=== PATIENT | male | born 1985 | race Caucasian/White ===

== ENCOUNTER 2022-06-10 14:41 | Emergency (ER) | payer MEDICAID, SELFPAY ==
--- NOTE | ~2022-06-10 | XR_ITS ---
EXAMINATION: XR SHOULDER, RIGHT CLINICAL INFORMATION: Right-sided shoulder pain. COMPARISON: None available. TECHNIQUE: 3 views. of the right shoulder. FINDINGS: No fracture. No dislocation. Glenohumeral joint and acromioclavicular joint are normal. No soft tissue calcification. There are popcorn like calcifications in the proximal humerus medullary cavity. This is likely due to enchondroma or old bone infarct. No expansion of the bone or bone erosions. No abnormal periosteal reaction. XR/XR shoulder RT min 2V IMPRESSION: 1. No acute abnormality of the shoulder. 2. Benign-appearing calcifications in the proximal humerus medullary cavity.
[2022-06-10 15:35] VITALS: BP 146/94; PULSE 76; RESP 18; TEMP 36.9; O2SAT 100; BMI 27.6
--- NOTE | 2022-06-10 15:40 | ED.EXTPRO ---
HPI - Extremity Problem General Chief complaint: Extremity Injury, Upper Stated complaint: r shoulder inj snowboarding Time Seen by Provider: 06/10/22 16:59 Source: patient Mode of arrival: ambulatory History of Present Illness HPI Narrative: 37 year old male with no significant past medical history presenting to the ED complaining of right shoulder pain with decreased strength x1 month s/p snowboarding accident. Reports fell onto right shoulder 1 month ago. Denies numbness, tingling, weakness, injury to the area, fever/chills MD Complaint: extremity pain Onset (ago): month(s) Related Data Allergies Allergy/AdvReac Type Severity Reaction Status Date / Time No Known Allergies Allergy Verified 06/10/22 15:38 Review of Systems Review of Systems: Constitutional: No Fever, No Chills ENT/Mouth: No Ear Pain, No Nasal Congestion, No Sinus Pain, No Hoarseness, No sore throat, No Rhinorrhea, No Swallowing Difficulty Cardiovascular: No Chest Pain, No SOB Respiratory: No Cough, No Sputum, No Wheezing Gastrointestinal: No Nausea, No Vomiting, No Diarrhea, No Constipation, No Abdominal pain Genitourinary: No Dysuria, No Urinary Frequency, No Hematuria, No Urinary Incontinence/retention, No Urgency, No Flank Pain Musculoskeletal: + joint pain, No Myalgias, No Joint Swelling Skin: No Skin Lesions, No rash Neuro: + Weakness, No Numbness, No Paresthesias Yes all other systems are reviewed and are negative Constitutional: Constitutional: Reports as per [facility] Past Medical History Attestation statement: The following information was validated with the patient. Physical Exam Vital Signs: Vital Signs: Last Vital Signs Temp 98.4 F 06/10/22 15:35 Pulse 76 06/10/22 15:35 Resp 18 06/10/22 15:35 BP 146/94 H 06/10/22 15:35 Pulse Ox 100 06/10/22 15:35 O2 Del Method Room Air 06/10/22 15:35 BMI result Body Mass Index 27.6 Const: General: cooperative, healthy appearing and no acute distress Orientation/consciousness: patient oriented x3 Limitations: no limitations HEENT: Head: Yes normal to inspection and Yes atraumatic Ears: hearing grossly normal bilaterally General nose exam: Normal external nose present Face and sinus: Yes normal facial exam Eyes: General: appearance normal, both eyes and all related structures EOM: EOMs intact bilaterally Neck: Neck: Yes normal visual inspection and Yes no meningeal signs Resp: Effort & Inspection: normal respiratory effort and no respiratory distress Cardio: Rate: regular rate Heart sounds: S1 normal heart sound present and S2 normal heart sound present Peripheral pulses: radial pulses present Skin: Rashes: no rashes Wounds: no wounds Neuro: General: patient oriented x3, tone normal and no meningeal signs Gait exam (Neuro): Normal gait present Extrem: Other: Right shoulder with tenderness to palpation to the AC joint. No deformity/erythema or warmth. Full range of motion intact with mild discomfort. Neurovascular intact distally General: Yes normal to inspection Course Course Course Narrative: RME: 37yo M w/no sig PMHx presenting to ED complaining of right shoulder pain with decreased strength x1 month s/p snowboarding accident. Reports fell onto right shoulder 1 month ago. Denies numbness, tingling, weakness Right shoulder with tenderness to palpation to the AC joint. Full range of motion intact with mild discomfort. Neurovascular intact distally X-rays ordered Full HPI, ROS and PE to be performed by primary ED provider. XR shoulder RT min 2V IMPRESSION: 1.? No acute abnormality of the shoulder. 2.? Benign-appearing calcifications in the proximal humerus medullary cavity. Results discussed with patient including worrisome signs and symptoms and strict return precautions, and when to return to the emergency department. They verbalized understanding and feel safe for discharge at this time. Medical Decision Making Medical Decision Making [facility] Narrative: 37 year old male with no significant past medical history presenting to the ED complaining of right shoulder pain with decreased strength x1 month s/p snowboarding accident. On exam vital signs stable, NAD, nontoxic appearing, physical exam as above. Concern for strain vs tendon/ligamental or rotator cuff injury. Lower suspicion for fracture, no evidence of septic joint/arthritis Plan: X-rays Please refer to course for remaining clinical decision making, interpretation of labs/imaging results, and discussions with consultants and/or family members. Differential Diagnosis Differential Diagnoses: The differential diagnosis associated with the presentation includes As above Lab Data [facility] Lab Attestation statement: I reviewed the patient's lab results. Radiology Impression Discussion of test interpretation with radiology: I have reviewed the radiologist's reading. External Record Review External record reviewed: Inpatient record, Office record, Outpatient record, Prior outpatient labs, Prior outpatient radiology, Primary care record and Outside ED record Discharge Plan Discharge Clinical Impression: Right shoulder pain Patient Disposition: Home, Self-Care Instructions: Shoulder Pain (ED) Additional Instructions: Your x-ray does not show any acute abnormality, you do have some benign parent calcifications to your humerus Please follow-up with your doctor and Orthopedics. You may need an MRI Rest. Take Tylenol/ Motrin for pain If symptoms persist or worsen return to the ED Referrals: [facility] [place] Primary CareSherice [Provider Group] [facility] [place] Primary CareJoellen [Provider Group] [facility] [place] [facility] [Provider Group] Physician,None [Primary Care Provider] - Stand Alone Forms: Work/School Release
== END 2022-06-10 17:08 | disposition home or self-care (01) ==
LOC: HO.ED 17:08
PROVIDERS: Emergency Provider Student in an Organized Health Care Education/Training Program
DX: G89.11 Acute pain due to trauma (principal); M25.511 Pain in right shoulder
CPT/HCPCS: 73030; 99281; 99283

== ENCOUNTER 2022-06-13 08:42 | Emergency (ER) | payer MEDICAID, SELFPAY ==
[2022-06-13 09:10] VITALS: BP 135/102; PULSE 85; RESP 19; TEMP 36.6; O2SAT 98; BMI 27.4
--- NOTE | 2022-06-13 09:25 | ED_ITS ---
HPI - Extremity Problem General Chief complaint: Extremity Injury, Upper Stated complaint: R shoulder pain Time Seen by Provider: 06/13/22 09:20 Source: patient Mode of arrival: ambulatory History of Present Illness HPI Narrative: 37-year-old male with no significant past medical history presenting to the ED complaining of continued right shoulder pain s/p snowboarding accident 1 month ago. Patient was recently seen and treated in our ED on 06/10 for similar symptoms, had negative x-ray. Reports continued pain, unchanged. Denies more recent injury/trauma or fall, numbness, tingling, weakness. States received a call from orthopedic office this morning and will be seen next week MD Complaint: extremity pain Related Data Previous Rx's Medication Instructions Recorded cyclobenzaprine 5 mg tablet 5 mg PO Q8H PRN pain (scale score 06/13/22 7-10) 5 days #14 tabs lidocaine 5 % topical patch 1 patch topical DAILY PRN pain #30 06/13/22 (Lidoderm) ea naproxen 500 mg tablet 500 mg PO BID PRN pain 10 days #20 06/13/22 tabs Allergies Allergy/AdvReac Type Severity Reaction Status Date / Time No Known Allergies Allergy Verified 06/13/22 09:10 Review of Systems Review of Systems: Constitutional: No Fever, No Chills ENT/Mouth: No Ear Pain, No Nasal Congestion, No sore throat, No Rhinorrhea, No Swallowing Difficulty Cardiovascular: No Chest Pain, No SOB Respiratory: No Cough, No Sputum Gastrointestinal: No Nausea, No Vomiting, No Diarrhea, No Constipation, No Abdominal pain Genitourinary: No Dysuria, No Urinary Frequency, No Urgency, No Flank Pain Musculoskeletal: + joint pain, No Myalgias, No Joint Swelling Skin: No Skin Lesions, No rash Neuro: No Weakness, No Numbness, No Paresthesias Yes all other systems are reviewed and are negative Constitutional: Constitutional: Reports as per [facility] Past Medical History Attestation statement: The following information was validated with the patient. Social History Social History Advance Directives: No Physical Exam Vital Signs: Vital Signs: Last Vital Signs Temp 98 F 06/13/22 09:10 Pulse 84 06/13/22 09:46 Resp 14 06/13/22 09:46 BP 139/85 06/13/22 09:46 Pulse Ox 100 06/13/22 09:46 O2 Del Method Room Air 06/13/22 09:46 BMI result Body Mass Index 27.4 Const: General: cooperative, healthy appearing and no acute distress Orientation/consciousness: patient oriented x3 Limitations: no limitations HEENT: Head: Yes normal to inspection and Yes atraumatic Ears: hearing grossly normal bilaterally General nose exam: Normal external nose present Face and sinus: Yes normal facial exam Eyes: General: appearance normal, both eyes and all related structures EOM: EOMs intact bilaterally Neck: Neck: Yes normal visual inspection and Yes no meningeal signs Resp: Effort & Inspection: normal respiratory effort and no respiratory distress Cardio: Rate: regular rate Heart sounds: S1 normal heart sound present and S2 normal heart sound present Skin: Rashes: no rashes Wounds: no wounds Neuro: General: patient oriented x3, tone normal and no meningeal signs Gait exam (Neuro): Normal gait present Extrem: Other: Right shoulder without noted deformity/erythema. + tenderness to palpation to the AC joint and deltoid. Full range of motion intact with pain. NV intact distally General: Yes normal to inspection Medications Administered Discontinued Medications Generic Name Dose Route Start Last Admin Trade Name Freq PRN Reason Stop Dose Admin Ketorolac Tromethamine 30 mg 06/13/22 09:32 06/13/22 10:15 Ketorolac Tromethamine 30 Mg/Ml Vial IM 06/13/22 09:33 30 mg ONCE ONE Administration Medical Decision Making Medical Decision Making [facility] Narrative: 37-year-old male with no significant past medical history presenting to the ED complaining of continued right shoulder pain s/p snowboarding accident 1 month ago. On exam initially hypertensive likely from pain, NAD, nontoxic appearing, physical exam as above. Concern for tendinitis vs MSK strain/ligamental / tendon or rotator cuff injury. No evidence of septic joint/arthritis. Low suspicion for fracture Plan: IM Toradol, orthopedic follow-up Please refer to course for remaining clinical decision making, interpretation of labs/imaging results, and discussions with consultants and/or family members. Differential Diagnosis Differential Diagnoses: The differential diagnosis associated with the presentation includes As above Admission/Observation Consideration of admission/observation: Escalation of care including admission/observation considered Lab Data [facility] Lab Attestation statement: I reviewed the patient's lab results. Radiology Impression Discussion of test interpretation with radiology: I have reviewed the radi ologist's reading. External Record Review External record reviewed: Inpatient record, Office record, Outpatient record, Prior outpatient labs, Prior outpatient radiology, Primary care record and Outside ED record Discharge Plan Discharge Clinical Impression: Right shoulder pain Patient Disposition: Home, Self-Care Instructions: Shoulder Pain (ED) Additional Instructions: Please follow-up with orthopedics as scheduled. Flexeril is a muscle relaxer, take at night as it makes you drowsy, do not drive, drink alcohol, or operate machinery while taking it Naproxen as an anti-inflammatory / pain medication, take with food Lidoderm patches are numbing patches, apply to painful area In addition take Tylenol at home Prescriptions: New lidocaine [Lidoderm] 5 % adhesive patch,medicated 1 patch topical DAILY MDD remove after 12 hours PRN (Reason: pain) Qty: 30 0RF Rx Instructions: leave on most painful area for up to 12 hrs naproxen 500 mg tablet 500 mg PO BID PRN (Reason: pain) 10 Days Qty: 20 0RF cyclobenzaprine 5 mg tablet 5 mg PO Q8H PRN (Reason: pain (scale score 7-10)) 5 Days Qty: 14 0RF [place] [facility] [place] [facility] [place] Group] Interventions: ED Discharge Assessment Last Done: 06/13/22 10:19 Discharge Date/Time: 06/13/22 10:19
[2022-06-13 09:46] VITALS: BP 139/85; PULSE 84; RESP 14; O2SAT 100
[2022-06-13] MEDS: Ketorolac Tromethamine 30 MG/ML VIAL IM (10:15)
== END 2022-06-13 10:19 | disposition home or self-care (01) ==
PROVIDERS: Emergency Provider Emergency Medicine
DX: M25.511 Pain in right shoulder (principal)
CPT/HCPCS: 96372; 99283; 99284; J1885

== ENCOUNTER 2022-06-24 10:45 | Outpatient (REF) | payer MEDICAID, SELFPAY ==
--- NOTE | ~2022-06-24 | XR_ITS ---
EXAMINATION: XR SHOULDER, RIGHT CLINICAL INFORMATION: Pain COMPARISON: None available. TECHNIQUE: AP external rotation, Grashey, scapular Y, and axillary views of the right shoulder. FINDINGS: The bones and soft tissues are normal. No fracture. Glenohumeral and acromioclavicular alignment is anatomic with normal joint space. No abnormal soft tissue calcifications. XR/XR shoulder RT min 2V IMPRESSION: Unremarkable right shoulder exam
== END 2022-06-24 10:46 | disposition home or self-care (01) ==
LOC: HO.HOSX 10:45
PROVIDERS: Visit Provider Physician Assistant
DX: S46.001A Unspecified injury of muscle(s) and tendon(s) of the rotator cuff of right shoulder, initial encounter (principal)
CPT/HCPCS: 73030; 99202

== ENCOUNTER 2025-01-25 07:53 | Emergency (ER) | payer SELFPAY ==
--- NOTE | ~2025-01-25 | CT_ITS ---
EXAMINATION: CT ABDOMEN AND PELVIS WITH CONTRAST CLINICAL INFORMATION: Right upper quadrant pain COMPARISON: Correlated to Limited ultrasound dated February 04, 2025. TECHNIQUE: Multidetector volumetric images were obtained from the superior aspect of the liver through the pubic symphysis following administration 85 mL of Omnipaque 350 intravenous contrast. Sagittal and coronal reformatted images were obtained on the technologist's workstation. Oral contrast: No This CT examination was performed using dose optimization techniques as appropriate, variously including the following: *Automated exposure control *Adjustment of mA and/or kV according to patient size (this includes techniques or standardized protocols for targeted exams where dose is matched to indication/reason for exam; i.e. extremities or head) *Use of iterative reconstruction technique DLP: 568 mGy-cm FINDINGS: LUNG BASES: Atelectasis in the periphery of both lung bases. LIVER, GALLBLADDER, AND BILIARY TREE: Liver measures 18 cm. No enhancing mass. No cystic lesion. Portal veins, hepatic veins and intrahepatic portion of the IVC are patent. Fluid-filled nondistended gallbladder. No pericholecystic fluid collection or gallbladder wall thickening. No intrahepatic or extrahepatic biliary ductal dilatation. PANCREAS: No enhancing mass. No peripancreatic fluid collection. No main pancreatic ductal dilatation. No cystic lesion. SPLEEN: 11 cm. There are few less than 1 cm cystic lesions in the superior aspect of the parenchyma. Small accessory spleen in the splenic hilum. ADRENAL GLANDS: No nodular lesions. KIDNEYS AND URETERS: No hydronephrosis or gross nephrolithiasis. No enhancing mass. No dilatation of the ureters. BLADDER: Fluid-filled. GASTROINTESTINAL TRACT: Intestinal wall thickening in a concentric fashion extending from the hepatic colonic flexure to the splenic colonic flexure. Abundant stool in the large intestine. No intestinal obstruction pattern. No pneumatosis intestinalis. No gross diverticulum. No pneumoperitoneum. No ascites. I do not see the appendix. Collapsed appearance of the distal descending colon/proximal sigmoid colon with questionable wall thickening. ABDOMINAL WALL: Small fat-containing umbilical hernia. LYMPH NODES: Prominent, mesenteric and retroperitoneal lymph nodes. VASCULAR: No aneurysm or dissection, abdominal aorta wall and iliac arteries. No gross calcified plaques. PELVIC VISCERA: Not enlarged. OSSEOUS STRUCTURES: Spondylosis at L5-S1 and to a lesser extent L4-5. Multilevel lower thoracic spondylosis. No acute fracture or gross listhesis. Bony pelvis is intact. Coxofemoral joints are intact. CT/CT abdomen pelvis w IV con IMPRESSION: Concerning acute colitis without intestinal obstruction pattern. Hepatomegaly, mild. Fleischner guidelines were followed. Electronically signed by: Armaan Berg MD 01/25/2025 10:32 AM EST
--- NOTE | ~2025-01-25 | US_ITS ---
EXAMINATION: US ABDOMEN LIMITED CLINICAL INFORMATION: Right upper quadrant abdominal pain.. COMPARISON: None available. TECHNIQUE: Real-time ultrasound of the right upper quadrant abdomen using grayscale technique. FINDINGS: PANCREAS: No peripancreatic fluid collections. LIVER: Liver measures 16 cm. Normal echotexture. No nodular surface. No solid or cystic lesion. No intrahepatic biliary ductal dilatation. Normal patency and hepatopedal flow direction in the main portal vein. GALLBLADDER: Fluid-filled without pericholecystic fluid collection or gallbladder wall thickening. COMMON BILE DUCT: 3 mm. RIGHT KIDNEY: 11 cm. Normal echotexture. Renal cortical thickness is normal. No hydronephrosis. No solid or cystic lesion.. FREE FLUID: None. US/US abdomen limited IMPRESSION: No cholelithiasis or choledocholithiasis. Hepatomegaly, mild. No hydronephrosis, right kidney. Electronically signed by: Armaan Berg MD 01/25/2025 10:02 AM JOANNA
[2025-01-25 08:07] VITALS: BP 138/89; PULSE 72; RESP 18; TEMP 36.7; O2SAT 99; BMI 26.7
[2025-01-25 08:34] LABS: MANUAL DIFF FLAG NO
[2025-01-25 08:36] LABS: Hematocrit 45.3 % (42.0-52.0); Hemoglobin 15.7 g/dl (14.0-18.0); Imm Gran Abs Auto 0.02 X10*3/uL (0.00-0.03); Imm Gran Pct Auto 0.3 % (0.0-0.4); Lymphocytes Absolute Auto 1.6 X10*3/uL (1.2-4.9); Mean Corpuscular HGB Conc 34.7 g/dl (31.0-36.0); Mean Corpuscular Hemoglobin 29.8 pg (27.0-33.0); Mean Corpuscular Volume 86.1 fL (80.0-98.0); NRBC Abs Auto 0.000 X10*3/uL (0.0-0.012); NRBC Pct Auto 0.0 /100WBC (0.0-0.2); Platelet Count 244 X10*3/uL (160-400); Red Blood Count 5.26 X10*6/uL (4.60-5.80); White Blood Count 7.4 X10*3/uL (4.8-10.8)
--- NOTE | 2025-01-25 08:43 | ED_ITS ---
HPI - General Adult General Chief complaint: Abdominal Pain Stated complaint: Stomach Pain Time Seen by Provider: 01/25/25 08:28 Source: patient Mode of arrival: ambulatory Limitations: no limitations History of Present Illness ED Provider: TATIANA Garcia HPI narrative: Chief Complaint: ?My stomach's been messed up for a couple months with diarrhea and a dull ache under my right ribs. I'm worried it might be my hepatitis C.? History of Present Illness: The patient reports approximately two months of persistent diarrhea accompanied by a dull, aching pain located just beneath the right costal margin. She was diagnosed with hepatitis C about 20 years ago after receiving a piercing and has never received treatment; only one hepatitis C test was performed at that time and has not been repeated. She states the hepatitis C viral load was described as ?kind of normal? then, and she declined therapy because it involved the older interferon-based regimen. She denies a history of intravenous drug use (states she contracted hepatitis C from a piercing about 20 years ago) and reports no prior liver-related problems. Associated symptoms: intermittent ?brain fog? and disrupted sleep. She denies nausea, vomiting, or jaundice. No other acute complaints were voiced during the encounter. Related Data Previous Rx's ?Medication ?Instructions ?Recorded cyclobenzaprine 5 mg tablet 5 mg PO Q8H PRN pain (scal e score 06/13/22 7-10) 5 days #14 tabs lidocaine 5 % topical patch 1 patch topical DAILY PRN pain #30 06/13/22 (Lidoderm) ea naproxen 500 mg tablet 500 mg PO BID PRN pain 10 da ys #20 06/13/22 tabs naproxen 500 mg tablet 500 mg PO BID 30 days #60 ta bs 06/24/22 Allergies Allergy/AdvReac Type Severity Reaction Status Date / Time No Known Allergies Allergy Verified 01/25/25 08:09 Review of Systems 2 Review of Systems: Yes all other systems are reviewed and are negative PMFSH Past Medical History Attestation statement: The following information was validated with the patient. Source: old records reviewed and nursing notes reviewed Surgical History (Updated 06/24/22 @ 09:08 by ANGELA Carlisle) History of surgery on lower extremity Social History Social History (Updated 06/24/22 @ 09:09 by ANGELA Carlisle) Patient Tobacco Use Status: Former Tobacco user Advance Directives: No Advance Directives Information Provided: No Current occupational status: unemployed Physical Exam ED Exam Exam: Appearance: Alert.? Oriented X3.? No acute distress.? Head: Normocephalic, atraumatic, no step-offs or deformities Eyes: Pupils equal, round and reactive to light.? ENT: Pharynx normal.? Neck: Normal inspection.? Neck supple.? CVS: Normal heart rate and rhythm.? Pulses normal.? Respiratory: No respiratory distress.? Breath sounds normal.? Abdomen: Soft and nontender.? Skin: Skin warm and dry.? Normal skin color.? Normal skin turgor.? Extremities: No lower extremity edema.? No calf ttp. 5/5 strength to bilateral upper and lower extremities Neuro: Oriented X 3.? No motor deficit.? No sensory deficit. CN 2-12 intact Vital Signs: Vital Signs - 24 hr 01/25/25 08:07 Temperature 98.1 F Pulse Rate 72 Respiratory Rate 18 Blood Pressure 138/89 Pulse Oximetry 99 Oxygen Delivery Method Room Air BMI result Body Mass Index 26.7 vss Course Reevaluation(s) Reevaluation #1: CBC no acute findings. Chemistry unremarkable. Slight bump in ALT 66 no previous labs to compare with. Albumin 5.2. Urine no acute infection. Abdominal ultrasound with no cholelithiasis or choledocholithiasis hepatomegaly mild no hydronephrosis. CT abdomen and pelvis with contrast showing acute colitis without interstitial obstruction pattern. Patient comfortable appearing normal vital signs no fever this is likely viral colitis. No indication for antibiotics no leukocytosis. Patient will be advised to return with any new or worsening symptoms. He will be given follow up with Infectious Disease. Educated patient on diagnosis and treatment plan, answered all question, patient verbalizes understanding. At this time patient will be discharged home, advised to return with new or worsening symptoms. Educated on worrisome signs and symptoms and when to return. At this time I feel comfortable discharge home. Time: 11:24 Medications Administered Discontinued Medications Generic Name Dose Route Start Last Admin Trade Name Freq PRN Reason Stop Dose Admin Iohexol 100 ml 01/25/25 10:14 01/25/25 10:15 Iohexol 350 Mg/Ml 100 Ml Infus..Btl IV 01/25/25 10:15 85 ml ONCE ONE Administration Medical Decision Making Medical Decision Making [facility] Narrative: 0858 39year-old female with history of untreated chronic hepatitis C presenting with new gastrointestinal symptoms. Main concerns are evaluation of potential hepatic involvement and relief of current GI complaints. Problem #1: Chronic Hepatitis C (untreated) Assessment: Long-standing hepatitis C diagnosed 20 years ago, never treated. Patient concerned about possible hepatic complications given new GI symptoms. Plan: * Repeat hepatitis C antibody and viral load testing. * Refer to hepatitis C specialist for evaluation of candidacy for current direct-acting antiviral therapy (name provided to patient). Problem #2: Diarrhea & Right Upper Quadrant Abdominal Pain Assessment: Two-month history of diarrhea and dull RUQ ache; etiology unclear. Possible hepatic origin versus separate gastrointestinal etiology. Plan: * Order right upper quadrant liver ultrasound to assess for hepatic or biliary pathology. * Symptomatic care pending results. 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 01/25/25 08:20 12 08:20 Labs: Lab Results 01/25/25 01/25/25 Range/Units 08:20 09:08 WBC 7.4 (4.8-10.8) X10*3/uL RBC 5.26 (4.60-5.80) X10*6/uL Hgb 15.7 (14.0-18.0) g/dl Hct 45.3 (42.0-52.0) % MCV 86.1 (80.0-98.0) fL MCH 29.8 (27.0-33.0) pg MCHC 34.7 (31.0-36.0) g/dl RDW 12.1 (11.0-16.0) % Plt Count 244 (160-400) X10*3/uL MPV 9.9 (9.4-12.4) fL Immature Gran % (Auto) 0.3 (0.0-0.4) % Neut % (Auto) 71.0 (45-73) % Lymph % (Auto) 21.7 (20-40) % [place] % (Auto) 5.0 (2-11) % Eos % (Auto) 1.6 (0-4) % Baso % (Auto) 0.4 (0-2) % Lymph # (Auto) 1.6 (1.2-4.9) X10*3/uL [place] # (Auto) 0.4 (0.1-1.2) X10*3/uL Eos # (Auto) 0.1 (0.0-0.4) X10*3/uL Baso # (Auto) 0.0 (0.0-0.2) X10*3/uL Abs Immat Gran (auto) 0.02 (0.00-0.03) X10*3/uL Absolute Neuts (auto) 5.3 (2.0-8.3) x10*3/uL Absolute Nucleated RBC 0.000 (0.0-0.012) X10*3/uL Nucleated RBC % (auto) 0.0 (0.0-0.2) /100WBC Sodium 142 (135-145) mmol/L Potassium 3.9 (3.3-5.1) mmol/L Chloride 105 (96-108) mmol/L Carbon Dioxide 29 (22-29) mmol/L Anion Gap 12 (12-20) BUN 13 (9-16) mg/dL Creatinine 0.86 (0.5-1.4) mg/dL Estim Creat Clear Calc 135.4 Estimated GFR > 60 Random Glucose 94 (60-115) mg/dL Calcium 9.6 (8.4-10.2) mg/dL Total Bilirubin 1.0 (0.0-1.0) mg/dL AST 34 (5-37) U/L ALT 66 H (0-40) U/L Alkaline Phosphatase 61 (39-117) U/L Total Protein 7.6 (6.5-8.0) g/dL Albumin 5.2 H (3.5-5.0) g/dL Urine Color Yellow Urine Appearance Clear Urine pH 7.0 (5.0-9.0) Ur Specific [place] >= 1.030 H (1.005-1.025) Urine Protein Trace (Neg-Trace) mg/dL Urine Glucose (UA) Negative (Negative) mg/dL Urine Ketones Trace (Negative) mg/dL Urine Blood Negative (Negative) Urine Nitrite Negative (Negative) Ur Leukocyte Esterase Trace H (Negative) Urine RBC 0-2 (0-2) /HPF Urine WBC 0-5 (0-5) /HPF Ur Squamous Epith Cells 0-2 (0-2) /HPF Urine Bacteria None Seen (None Seen) Hyaline Casts 0-2 (0-2) /LPF Independent Interpretation I performed an independent interpretation of an: CT Scan Radiology Impression Discussion of test interpretation with radiology: I have reviewed the radiologist's reading. Chronic Conditions Patient?s care impacted by: Other (Untreated Hep C ) Critical Care Time Critical Care Time Critical Care Time: Yes Total Critical Care Time: 35 Attestation: I attest to this time spent taking care of the patient, obtaining history, physical, reviewing labs, imaging, treatment of patients condition +/- specialist/hospitalist consult +/- procedure Discharge Plan Discharge Clinical Impression: Hepatomegaly, Colitis Patient Disposition: Home, Self-Care Additional Instructions: Take your medications as prescribed. If you were prescribed antibiotics today, it is important that you take your medication to their entirety, do not skip any doses, do not finish them early. Follow-up with your primary care provider this week. Return to the emergency department with new or worsening symptoms. Such as fevers, chills, chest pain, shortness of breath, nausea, vomiting, dizziness, headache, vision changes, lethargy In case of emergency call [address] CT/CT abdomen pelvis w IV con IMPRESSION: Concerning acute colitis without intestinal obstruction pattern. Hepatomegaly, mild. US/US abdomen limited IMPRESSION: No cholelithiasis or choledocholithiasis. Hepatomegaly, mild. No hydronephrosis, right kidney. Prescriptions: No Action lidocaine [Lidoderm] 5 % adhesive patch,medicated 1 patch topical DAILY MDD remove after 12 hours PRN (Reason: pain) Qty: 30 0RF Rx Instructions: leave on most painful area for up to 12 hrs naproxen 500 mg tablet 500 mg PO BID PRN (Reason: pain) 10 Days Qty: 20 0RF cyclobenzaprine 5 mg tablet 5 mg PO Q8H PRN (Reason: pain (scale score 7-10)) 5 Days Qty: 14 0RF naproxen 500 mg tablet 500 mg PO BID 30 Days Qty: 60 3RF Referrals: Renita Baeza MD [Physician, Infectious Disease] - 1 day Physician,None [Primary Care Provider, Medical] Stand Alone Forms: Work/School Release Print Language: Estonian
[2025-01-25 08:50] LABS: Alanine Aminotransferase 66 U/L (0-40); Albumin Level 5.2 g/dL (3.5-5.0); Alkaline Phosphatase 61 U/L (39-117); Anion Gap 12 (12-20); Aspartate Amino Transferase 34 U/L (5-37); Blood Urea Nitrogen 13 mg/dL (9-16); Calcium 9.6 mg/dL (8.4-10.2); Carbon Dioxide 29 mmol/L (22-29); Chloride 105 mmol/L (96-108); Creatinine Clr Calc Pharmacy 135.4; Estimated Glomerular Filt Rate > 60; Potassium 3.9 mmol/L (3.3-5.1); Sodium 142 mmol/L (135-145); Total Protein 7.6 g/dL (6.5-8.0)
[2025-01-25 09:19] LABS: Appearance Urine Clear; Glucose Urine UA Negative (Negative); PH 7.0 (5.0-9.0); Specific Gravity - Urine >= 1.030 (1.005-1.025); UMIC TRIGGER UACC YES
[2025-01-25 09:58] LABS: HBS Num1 264.66 mIU/mL (0-7.99); HBc Num1 0.06 S/CO (0.00-0.79); HBsAGNum1 0.41 S/CO (0.00-0.99); Hepatitis A Antibody IgM 0.22 Index (0-0.79); Hepatitis B Surface Antigen Negative (Negative); ~HepC Num1 16.68 S/CO (0.00-0.79); ~Hepatitis A Antibody IgM Nonreactive (Nonreactive); ~Hepatitis B Surface Antibody REACTIVE (Nonreactive); ~Hepatitis C Antibody Reactive (Nonreactive)
[2025-01-25] MEDS: iohexoL 350 MG/ML 100 ML INFUS..BTL IV (10:15)
[2025-01-25 12:23] VITALS: BP 138/89; PULSE 72; RESP 18; TEMP 36.7; O2SAT 99
== END 2025-01-25 12:23 | disposition home or self-care (01) ==
PROVIDERS: Physician Assistant; Emergency Provider Emergency Medicine Emergency Medical Services
DX: R16.0 Hepatomegaly, not elsewhere classified (principal); K52.9 Noninfective gastroenteritis and colitis, unspecified; R10.11 Right upper quadrant pain
CPT/HCPCS: 36415; 74177; 76705; 80053; 81001; 85025; 86704; 86706; 86709; 86803; 87340; 87522; 87902; 99284; 99285; Q9967

== ENCOUNTER → 2025-01-25 08:44 | Outpatient (BNV) | payer SELFPAY | PROVIDERS: Emergency Provider Emergency Medicine Emergency Medical Services; Visit Provider Radiology Diagnostic Radiology | DX: R16.0 Hepatomegaly, not elsewhere classified (principal) | CPT/HCPCS: 74177; 76705 ==